=== PATIENT | male | born 1975 | race Caucasian/White ===

== ENCOUNTER 2018-02-25 10:54 | Emergency (ER) | payer OTHER, BC | END 2018-02-25 14:22 | disposition home or self-care (01) | LOC: M ED 10:54 | DX: S49.92XA Unspecified injury of left shoulder and upper arm, initial encounter (principal); X58.XXXA Exposure to other specified factors, initial encounter; Y92.59 Other trade areas as the place of occurrence of the external cause; Y99.0 Civilian activity done for income or pay; J45.909 Unspecified asthma, uncomplicated; Z88.1 Allergy status to other antibiotic agents; Z79.899 Other long term (current) drug therapy | CPT/HCPCS: 73030 ==

== ENCOUNTER 2018-08-18 15:08 | Emergency (ER) | payer BC, OTHER ==
[2018-08-18] MEDS: ALBUTEROL SULFATE 2.5 MG/0.5 ML INH NEB SOLN NEB (15:29)
[2018-08-18] MEDS: IPRATROPIUM 0.5MG/ALBUTEROL 2.5MG INH SOL UD 3ML (DUONEB)(J7620) NEB (15:29)
[2018-08-18] MEDS: methylPREDNISolone INJ 125 MG/2 ML VIAL (J2930) IV (15:30)
[2018-08-18 16:13] LABS: INFLUENZA A AMPLIFICATION NEGATIVE (NEGATIVE); INFLUENZA B AMPLIFICATION NEGATIVE (NEGATIVE)
== END 2018-08-18 16:49 | disposition home or self-care (01) ==
LOC: M ED 15:08
DX: J45.901 Unspecified asthma with (acute) exacerbation (principal); I73.00 Raynaud's syndrome without gangrene; Z88.1 Allergy status to other antibiotic agents; Z79.899 Other long term (current) drug therapy
CPT/HCPCS: J2930

== ENCOUNTER 2019-06-02 17:24 | Emergency (ER) | payer BC, SELFPAY ==
[~2019-06-02] VITALS: Ht 182.9 cm; Wt 56.8 kg
[~2019-06-02 17:24] MED LIST: HYDR-3715 PO; IPRA0.00 NEB; MOBI4TAB PO; MONT10TA2 PO; PRED10TA2 PO; PRED20TA PO; PROAAER10 INH; SING10TA32 PO; VENTAER INH
[2019-06-02] MEDS ORDERED: ALBUTEROL SULFATE 2.5 MG/0.5 ML INH NEB SOLN INH ONE (18:00)
[2019-06-02 18:05] LABS: BASO # 0.1 10^3/uL (0.0-0.2); BASO % 0.4 % (0.0-1.0); EOS # 0.3 10^3/uL (0.0-0.5); EOS % 2.7 % (0.0-3.0); HEMATOCRIT 42.6 % (42.0-52.0); HEMOGLOBIN 14.9 g/dl (13.5-17.5); LYMPH # 0.4 10^3/uL (1.5-5.0); LYMPH % 3.4 % (24.0-44.0); MEAN CORPUSCULAR HEMOGLOBIN 30.5 pg (27.0-33.0); MEAN CORPUSCULAR VOLUME 87.3 fl (80.0-96.0); MONO # 0.4 10^3/uL (0.0-0.8); MONO % 2.8 % (0.0-5.0); NEUTROPHILS # 11.6 10^3/uL (1.5-8.5); NEUTROPHILS % 90.4 % (36.0-66.0); PLATELET COUNT, AUTOMATED 251 10^3/uL (150-450); RED BLOOD COUNT 4.88 10^6/uL (4.30-6.10); WHITE BLOOD COUNT 12.8 10^3/uL (4.0-10.0)
--- NOTE | 2019-06-02 18:07 | REP ---
Portable chest, single AP view with the patient sitting, five, 49 p.m.: Comparison is 10/29/2017. There is chronic hyperinflation, unchanged. There are no infiltrates. There are no pleural effusions. There are no masses or nodules. Cardiac size is normal. The lakeisha, mediastinum, and skeletal structures are unremarkable. Impression: Chronic hyperinflation. There are no acute cardiopulmonary findings. Electronically Signed by Damon Keller MD 06/02/2019 05:59 P
[2019-06-02 18:36] LABS: BLOOD UREA NITROGEN 10 MG/DL (7-18); CALCIUM LEVEL 8.7 MG/DL (8.5-10.1); CARBON DIOXIDE LEVEL 26 MEQ/L (21-32); CHLORIDE LEVEL 104 MEQ/L (98-107); CREATININE FOR GFR 0.88 MG/DL (0.70-1.30); GLOMERULAR FILTRATION RATE > 60.0 (>60); GLUCOSE, FASTING 111 MG/DL (70-100); POTASSIUM SERUM 3.1 MEQ/L (3.5-5.1); SODIUM LEVEL 140 MEQ/L (136-145)
[2019-06-02 18:41] LABS: INFLUENZA A AMPLIFICATION NEGATIVE (NEGATIVE); INFLUENZA B AMPLIFICATION NEGATIVE (NEGATIVE)
[2019-06-02] MEDS ORDERED: PRED20TA PO (18:51)
[2019-06-02] MEDS ORDERED: POTASSIUM CHLORIDE 10 MEQ SR TABLET PO ONE (19:00)
[2019-06-02 19:22] VITALS: BP 122/61
--- NOTE | 2019-06-03 05:01 | ECGEPIP ---
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
== END 2019-06-02 19:24 | disposition home or self-care (01) ==
LOC: M ED 17:24
DX: J45.901 Unspecified asthma with (acute) exacerbation (principal); Z79.899 Other long term (current) drug therapy; Z88.1 Allergy status to other antibiotic agents

== ENCOUNTER → 2020-03-26 | Outpatient (CLI) | payer BC ==
[~2020-03-26] MED LIST changes: -MONT10TA2 PO; +MONT10TA4 PO
[2020-03-29 14:14] LABS: ANTINUCLEAR ANTIBODIES DIRECT Negative (Negative)
== END ==
LOC: M WUC 13:56
PROVIDERS: ATTEND Dermatology
DX: R23.8 Other skin changes (principal)

== ENCOUNTER → 2020-06-15 | Outpatient (CLI) | payer BC ==
[2020-06-15 12:54] LABS: HEMATOCRIT 44.1 % (42.0-52.0); MEAN CORPUSCULAR HEMOGLOBIN 29.6 pg (27.0-33.0); PLATELET COUNT, AUTOMATED 311 10^3/uL (150-450); RED BLOOD COUNT 5.07 10^6/uL (4.30-6.10); WHITE BLOOD COUNT 6.4 10^3/uL (4.0-10.0)
[2020-06-15 18:18] LABS: ALT/SGPT 28 U/L (12-78); BILIRUBIN,TOTAL 0.4 MG/DL (0.2-1.0); BLOOD UREA NITROGEN 10 MG/DL (7-18); CALCIUM LEVEL 9.3 MG/DL (8.5-10.1); CARBON DIOXIDE LEVEL 26 MEQ/L (21-32); CHLORIDE LEVEL 108 MEQ/L (98-107); CREATININE FOR GFR 0.98 MG/DL (0.70-1.30); GLOMERULAR FILTRATION RATE > 60.0 (>60); GLUCOSE, FASTING 127 MG/DL (70-100); POTASSIUM SERUM 3.8 MEQ/L (3.5-5.1); SODIUM LEVEL 142 MEQ/L (136-145); TOTAL PROTEIN 7.4 GM/DL (6.4-8.2)
== END ==
LOC: M WUC 09:24
PROVIDERS: ATTEND Dermatology
DX: R23.8 Other skin changes (principal)

== ENCOUNTER 2025-03-26 07:00 | Day surgery (SDC) | payer BC ==
[~2025-03-26] VITALS: Ht 182.9 cm; Wt 58.2 kg
[~2025-03-26 07:00] MED LIST changes: +BUPR150T12; +MONT-5 PO; -MONT10TA4 PO; +MONT10TA97 PO; -SING10TA32 PO
[2025-03-26] MEDS ORDERED: LIDOCAINE 2% 100 MG/5 ML SDV (FOR ANES.) As Ordered ONE (08:02)
[2025-03-26 08:18] VITALS: TEMP 97.6
[2025-03-26 08:38] VITALS: BP 120/70; O2SAT 99
== END 2025-03-26 08:46 | disposition home or self-care (01) ==
LOC: M OPP 07:00
PROVIDERS: ATTEND Internal Medicine Gastroenterology
DX: Z12.11 Encounter for screening for malignant neoplasm of colon (principal); K64.8 Other hemorrhoids; Z80.0 Family history of malignant neoplasm of digestive organs; Z88.1 Allergy status to other antibiotic agents; Z79.899 Other long term (current) drug therapy; J45.909 Unspecified asthma, uncomplicated